=== PATIENT | female | born 1975 | race Caucasian/White ===

== ENCOUNTER 2018-01-27 00:48 | Emergency (ER) | payer SELFPAY ==
[2018-01-27] MEDS ORDERED: predniSONE 20 MG TABLET (UD) PO ONE (00:55)
--- NOTE | 2018-01-27 00:59 | PDOC ---
History of Present Illness - General Chief Complaint: Rash Stated Complaint: RASH Time Seen by Provider: 01/27/18 00:51 History Source: Patient, Family Exam Limitations: Language Barrier - History of Present Illness Initial Comments: 01/27/18 00:56 This is a 42-year-old female who comes in with her daughters for evaluation of a rash/itchy this that's been intermittent 3 days. Daughter has some ALLERGY pills that she gave her which helped but then the symptoms come back. Otherwise she denies any shortness of breath, sensation throat is closing, cough, congestion or any other complaints. She also denies any new lotions creams or ointments food or medications. She denies history of hives in the past. PAST MEDICAL HISTORY: no significant history PAST SURGICAL HISTORY: no significant history FAMILY HISTORY: no pertinant history SOCIAL HISTORY: Pt lives with family and is employed. MEDICATIONS: reviewed ALLERGIES: As per nursing notes Review of Systems General: No fevers or chills, no weakness, no weight loss HEENT: No change in vision. No sore throat,. No ear pain CardioVascular: No chest pain or shortness of breath Respiratory:No cough, or wheezing. Gastrointestinal: no nausea, vomitting, diarrhea or constipation, No rectal bleeding Genitourinary: No dysuria, hematuria, or frequency Musculoskeletal: No joint or muscle pain or swelling Neurologic: No headache, vertigo, dizziness or loss of consciousness Psychiatric: nor depression Skin: itchy rash Endocrine: no increased thirst or abnormal weight change Allergic: no skin or latex allergy All other systems reviewed and normal Exam: General: Well-nourished well-developed individual, no acute distress HEENT: Throat: Normal, tonsils normal, no erythema or exudate Neck: Supple, no meningeal signs, no lymphadenopathy Eyes::Pupils equal reactive and round, extraocular motion intact Chest: Nontender to palpation Cardiac: S1-S2 normal, regular rate and rhythm, no murmurs rubs or gallops Respiratory: Lungs clear to auscultation bilateral Abdomen: Soft, nondistended, normal bowel sounds, nontender to palpation diffusely Extremities: Warm, dry, no cyanosis, clubbing, or edema Skin: Patient has hives of her extremities bilateral. Neuro: Alert and oriented x3, CN II - XII intact, nonfocal exam with normal strength, normal sensation, normal reflexes, normal gait, Psych: Normal mood and affect Assessment and plan: This is a 42-year-old female with hives the source of the reaction is unknown at this time. Discussed with patient the importance of following up with an [facility] goods marker for ALLERGY testing if it improves continue to recur. In the meantime patient was given prednisone and Benadryl. Prescription for a Medrol Dosepak was sent to her pharmacy and she was told to continue the Benadryl at night and Lisa or Claritin during the day for the next several days. Past History - Past Medical History Allergies/Adverse Reactions: Allergies Allergy/AdvReac Type Severity Reaction Status Date / Time No Known Allergies Allergy Verified 01/27/18 00:55 Home Medications: Ambulatory Orders Vitamins (Sjr) - 1 tab PO DAILY 04/02/14 Ferrous Sulfate [Feosol] 325 mg PO BID #60 ud 04/08/14 Asthma: No Cancer: No Cardiac Disorders: No Diabetes: No HTN: No Seizures: No Thyroid Disease: No - Suicide/Smoking/Psychosocial Hx Smoking History: Never smoked Have you smoked in the past 12 months: No Hx Alcohol Use: No Drug/Substance Use Hx: No Hx Substance Use Treatment: No *DC/Admit/Observation/Transfer Diagnosis at time of Disposition: Hives - Discharge Dispostion Disposition: HOME Condition at time of disposition: Stable Admit: No - Referrals - Patient Instructions Printed Discharge Instructions: DI for Hives Additional Instructions: and take as per the DosepakDuring the day take Lisa or Claritin if symptoms start to return At nighttime U can take Benadryl Addition to that get the prescription filled for the Medrol Dosepak and take as per the Dosepak. Return to the emergency department immediately with ANY new, persistent or worsening symptoms. Continue any medications as previously prescribed by your physician. You should follow up with your primary doctor as soon as possible regarding today's emergency department visit. . Please make sure your doctor reviews the results of your emergency evaluation. Thank you for coming to the Emergency Department today for your care. It was a pleasure to see you today. Please note that your evaluation is INCOMPLETE until you follow-up with your doctor. - Post Discharge Activity
[2018-01-27] MEDS ORDERED: diphenhydrAMINE HCL 50 MG CAPSULE PO ONE (01:01)
[2018-01-27 01:03] VITALS: BP 127/85; PULSE 64; TEMP 97.6; BMI 28.7
== END 2018-01-27 01:06 | disposition home or self-care (01) ==
LOC: FER 00:48
DX: R10.9 Unspecified abdominal pain (principal)
CPT/HCPCS: 99281-25

== ENCOUNTER 2024-06-21 17:38 | Emergency (ER) | payer SELFPAY ==
[2024-06-21 18:11] VITALS: BP 127/80; PULSE 60; RESP 20; TEMP 98.4; BMI 28.7
[2024-06-21] MEDS: ACETAMINOPHEN 500 MG TABLET (FP) PO ONE (18:43)
[2024-06-21] MEDS: KETOROLAC TROMETHAMINE 60 MG/2 ML VIAL IM ONE (20:48)
[2024-06-21] MEDS ORDERED: KETOROLAC TROMETHAMINE 60 MG/2 ML VIAL ONE (20:49)
== END 2024-06-21 20:54 | disposition home or self-care (01) ==
LOC: FER 17:38
PROC: 3E0233Z Introduction of Anti-inflammatory into Muscle, Percutaneous Approach (ICD-10-PCS; principal; 2024-06-21)
DX: M25.561 Pain in right knee (principal); M79.604 Pain in right leg
CPT/HCPCS: 73562-TC-RT-FY; 93971-TC; 99284-25